=== PATIENT | female | born 1980 | race Hispanic/Latino ===

== ENCOUNTER 2017-04-30 20:05 | Observation (INO) | payer MEDICARE, MEDICAID ==
[2017-04-30 20:05] VITALS: BMI 26.4
--- NOTE | 2017-04-30 21:52 | ED PDOC ---
HPI: CCC, URI, Sore Throat Time Seen by Provider: 04/30/17 21:30 Chief Complaint (Nursing): Shortness Of Breath Chief Complaint (Provider): cough History Per: Patient History/Exam Limitations: no limitations Onset/Duration Of Symptoms: Days (4) Current Symptoms Are (Timing): Still Present Location Of Pain: Throat Associated Symptoms: Fever, Chills, Sore Throat, Cough, Myalgias Additional History Per: Patient Additional Complaint(s): 36 y/o female history of multiple sclerosis (on IVIG infusions every 2 weeks) presents with cough x 4 days. Associated chest pain, shortness of breath, throat pain. Patient notes generalized weakness, with excessive weight gain and associated swelling x 3 weeks; states she is being followed by [employer] to be tested for possible [place]'s syndrome and thyroid disease. Patient states she gets bronchitis this time of year, was seen by her primary doctor and prescribed Zpak and advised to come to the ED for admission as he noticed her swelling around her neck to be getting worse. Denies neck pain, nausea/vomiting, palpitations, abdominal pain, recent travel ,sick contacts. Patient has been off PO prednisone use for about 2-3 weeks. Past Medical History Reviewed: Historical Data, Nursing Documentation, Vital Signs Vital Signs: Last Vital Signs Temp 98.5 F 05/02/17 13:00 Pulse 84 05/02/17 13:00 Resp 18 05/02/17 13:00 BP 94/60 L 05/02/17 13:00 Pulse Ox 99 05/02/17 13:00 - Medical History PMH: Bronchitis, Fibromyalgia, Multiple Sclerosis, Pneumonia Denies: Depression, Chronic Kidney Disease - Surgical History Surgical History: No Surg Hx - Family History Family History: States: Unknown Family Hx - Home Medications Home Medications: Ambulatory Orders Medication Instructions Recorded Pregabalin [Lyrica] 200 mg PO TID 10/18/15 Carbidopa/Levodopa [Rytary ER 36.25 mg PO TID 05/01/17 36.25 mg-145 mg Cap] HYDROmorphone [Dilaudid] 1 tab PO TID 05/01/17 tiZANidine [Zanaflex] 1 tab PO QID 05/01/17 Cefuroxime Axetil [Cefuroxime] 500 mg PO BID #14 tablet 05/02/17 - Allergies Allergies/Adverse Reactions: Allergies Allergy/AdvReac Type Severity Reaction Status Date / Time methylprednisolone sodium Allergy Severe ANAPHYLAXIS Verified 02/20/17 12:10 succinate [From Solu-Medrol] meloxicam [From Mobic] Allergy ANGIOEDEMA Verified 02/20/17 12:10 naproxen Allergy URTICARIA Verified 02/20/17 12:10 Review of Systems ROS Statement: Except As Marked, All Systems Reviewed And Found Negative Constitutional: Positive for: Fever, Chills Cardiovascular: Positive for: Chest Pain Respiratory: Positive for: Cough, Shortness of Breath Physical Exam - Reviewed Nursing Documentation Reviewed: Yes Vital Signs Reviewed: Yes - Physical Exam Appears: Positive for: Well, Non-toxic, No Acute Distress Head Exam: Positive for: ATRAUMATIC, NORMAL INSPECTION, NORMOCEPHALIC Skin: Positive for: Normal Color, Rash (erythema/swelling noted anterior and posterior neck (buffalo hump?)) Eye Exam: Positive for: Normal appearance ENT: Positive for: Normal ENT Inspection Cardiovascular/Chest: Positive for: Regular Rate, Rhythm, Other (left chest port -a-cath) Respiratory: Positive for: Normal Breath Sounds Gastrointestinal/Abdominal: Positive for: Normal Exam Back: Positive for: Normal Inspection Extremity: Positive for: Normal ROM Neurologic/Psych: Positive for: Alert, Oriented - Laboratory Results Result Diagrams: 05/01/17 10:30 05/02/17 05:30 - ECG ECG: Positive for: Viewed By Me (reviewed by ED attending) ECG Rhythm: Positive for: Sinus Tachycardia O2 Sat by Pulse Oximetry: 98 - Progress ED Course And Treament: labs, urine, chest xray, IV fluids EXAM: XR Chest, 1 View CLINICAL HISTORY: 36 years old, female; Pain; Chest pain; Additional info: Cough, chest pain, SOB TECHNIQUE: Frontal view of the chest 9:58 PM on April 30, 2017. COMPARISON: No relevant prior studies available. FINDINGS: Lungs: There are mildly prominent interstitial markings bilaterally. Pleural space: Unremarkable. No pneumothorax. Heart: Unremarkable. No cardiomegaly. Mediastinum: Unremarkable. Tubes, lines and devices: A left subclavian central venous catheter is present, with its tip overlying the region of the superior vena cava. IMPRESSION: Mildly prominent interstitial markings bilaterally could be secondary to interstitial edema or pneumonia. No focal consolidation. Patient evaluated by ED attending Dr. Mukherjee; will admit for pneumonia with failed outpatient treatment and obtain CT neck to r/out fluid collection IV rocephin, IV zithromax ordered Case discussed with Dr. Pedersen, medical service on-call, for admission. EXAM: CT Neck Without Intravenous Contrast CLINICAL HISTORY: 36 years old, female; Pain; Other: Swelling TECHNIQUE: Axial computed tomography images of the neck without intravenous contrast. All CT scans at this facility use one or more dose reduction techniques, viz.: automated exposure control; ma/kV adjustment per patient size (including targeted exams where dose is matched to indication; i.e. head); or iterative reconstruction technique. Coronal and sagittal reformatted images were created and reviewed. COMPARISON: US - THYROID 10/18/2015 8:38:01 AM FINDINGS: Nasopharynx: Unremarkable. Oropharynx: Unremarkable. No significant tonsillar enlargement. Hypopharynx: Unremarkable. Larynx: Unremarkable. Normal epiglottis. Trachea: Unremarkable. Retropharyngeal space: Unremarkable. Submandibular/parotid glands: Unremarkable. Glands are normal in size. Thyroid: Unremarkable. No enlarged or calcified nodules. Bones/joints: No acute fracture. Soft tissues: Unremarkable. Vasculature: No acute findings. Lymph nodes: Mildly enlarged cervical lymph nodes bilaterally. The largest care support representative lymph node measures 1.5 cm. Lung apices: Unremarkable as visualized. IMPRESSION: Mildly enlarged cervical lymph nodes. No focal fluid collection or mass. Disposition - Clinical Impression Clinical Impression: Leukocytosis, Pneumonia - Patient ED Disposition Is Patient to be Admitted: Yes - Disposition Disposition Time: 00:00 Condition: FAIR
[2017-04-30 22:23] LABS: BASO # 0.2 K/uL (0.0-0.2); BASO % 1.1 % (0.0-2.0); EOS # 0.1 K/uL (0.0-0.7); EOS % 0.6 % (0.0-4.0); HEMATOCRIT 38.9 % (34.0-47.0); LYMPH # 2.3 K/uL (1.0-4.3); LYMPH % 13.3 % (20.0-40.0); MEAN CELL VOLUME 88.4 fl (81.0-99.0); MEAN CORPUSCULAR HEMOGLOBIN 29.1 pg (27.0-31.0); MEAN CORPUSCULAR HGB CONC 32.9 g/dL (33.0-37.0); MEAN PLATELET VOLUME 7.5 fl (7.2-11.7); MONO # 0.7 K/uL (0.0-0.8); NEUT # 14.1 K/uL (1.8-7.0); RED CELL DISTRIBUTION WIDTH 15.5 % (11.5-14.5); WHITE BLOOD COUNT 17.4 K/uL (4.8-10.8)
[2017-04-30 22:31] LABS: VENOUS BLOOD GAS BASE EXCESS -0.8 mmol/L (0.0-2.0); VENOUS BLOOD GAS PCO2 37 mmHg (40-60); VENOUS BLOOD PH 7.41 (7.32-7.43)
[2017-04-30 22:36] LABS: ALB/GLOB RATIO 1.2 (1.0-2.1); ALKALINE PHOSPHATASE 112 U/L (38-126); ALT/SGPT 17 U/L (9-52); AST/SGOT 40 U/L (14-36); BILIRUBIN,TOTAL 0.9 mg/dl (0.2-1.3); BLOOD UREA NITROGEN 8 mg/dl (7-17); CARBON DIOXIDE 22 mmol/L (22-30); CHLORIDE 105 mmol/L (98-107); GFR AFRICAN-AMERICAN > 60; GLUCOSE,RANDOM 108 mg/dL (65-105); POTASSIUM 4.1 MMOL/L (3.6-5.0); SODIUM 140 mmol/l (132-148); TOTAL PROTEIN 7.1 G/DL (6.3-8.2)
[2017-04-30] MEDS ORDERED: Sodium Chloride 0.9% 1,000 ML IV STA (23:01)
[2017-04-30 23:07] LABS: THYROID STIMULATING HORMONE 0.75 mIU/ML (0.46-4.68)
[2017-04-30 23:30] LABS: RBC URINE 1 /hpf (0-3); URINE BACTERIA RARE (<OCC); URINE BILIRUBIN NEGATIVE (NEGATIVE); URINE BLOOD NEGATIVE (NEGATIVE); URINE COLOR STRAW (YELLOW); URINE GLUCOSE (UA) NEG (Normal); URINE KETONE NEGATIVE (NEGATIVE); URINE LEUKOCYTE ESTERASE NEG Leu/uL (Negative); URINE PROTEIN NEGATIVE (NEGATIVE); URINE UROBILINOGEN 0.2-1.0 mg/dL (0.2-1.0); WBC URINE 1 /hpf (0-5)
[2017-05-01] MEDS ORDERED: Azithromycin 500 MG in Sodium Chloride 0.9% 250 ML IVPB STA (00:23)
[2017-05-01] MEDS ORDERED: cefTRIAXone (Rocephin) 1 gm Inj ONE (00:33)
[2017-05-01] MEDS ORDERED: Azithromycin 500 MG IV IVPB ONE (02:07)
[2017-05-01] MEDS ORDERED: Albuterol-Ipratrop 3 mg / 0.5 (3 ml) UD IH STA (03:34)
[2017-05-01] MEDS ORDERED: Albuterol-Ipratrop 3 mg / 0.5 (3 ml) UD ONE (05:32)
--- NOTE | 2017-05-01 07:56 | CT ---
PROCEDURE: CT NECK WITHOUT CONTRAST HISTORY: swelling COMPARISON: None. TECHNIQUE: CT of the neck without intravenous contrast. Coronal and sagittal reformats generated. Radiation dose: DLP 577.36 mGy-cm This CT exam was performed using one or more of the following dose reduction techniques: Automated exposure control, adjustment of the mA and/or kV according to patient size, and/or use of iterative reconstruction technique. FINDINGS: NASOPHARYNX: Unremarkable. SUPRAHYOID NECK: Unremarkable oropharynx, oral cavity, parapharyngeal space and retropharyngeal space. INFRAHYOID NECK: Unremarkable larynx, hypopharynx, and supraglottic space. Vocal cords intact. MASS: None. GLANDS: Parotid and submandibular glands unremarkable. Normal size thyroid gland, somewhat heterogeneous in density but nonfocal. LYMPH NODES: [place] supra and infrahyoid lymph nodes are identified without significant enlargement. CERVICAL SPINE: No fracture or focal lesion. OTHER FINDINGS: A left subclavian central venous port is identified placed in the superior vena cava with the tip off this examination. IMPRESSION: Left central venous chest port as discussed above. Tip off examination. No suspicious lymphadenopathy above or below the hyoid bone, discrete mass or evidence of soft tissue edema. Contrast CT is available further characterization if clinical concern remains for further neck pathology. Concordant report from [facility] 05/01/2017.
--- NOTE | 2017-05-01 08:01 | CP.PCM.HP ---
History of Present Illness - History of Present Illness History of Present Illness: A 36 year old female with a known history of MS was sent by her PMD, Dr Jerel Espinosa for voice hoarseness and closing sense of her throat. She could not make her voice and could not swallow for a few days. Her PMD prescribed antibiotics for throat infection, but it got worse. She was diagnosed with MS about five years ago. She has been taking IV Ig infusion 1 gram every two weeks. She has been seeing an airfreight operations agent for evaluation for Mitch disease and goiter. She developed an anaphylactic reaction to solumedrol before. Present on Admission - Present on Admission Any Indicators Present on Admission: No History of DVT/PE: No History of Uncontrolled Diabetes: No Urinary Catheter: No Decubitus Ulcer Present: No Review of Systems - Constitutional Constitutional: absent: Anorexia, Chills - EENT Eyes: absent: Blurred Vision Ears: absent: Decreased Hearing Nose/Mouth/Throat: Dysphagia, Hoarsness - Cardiovascular Cardiovascular: absent: Chest Pain - Gastrointestinal Gastrointestinal: Bloating. absent: Abdominal Pain - Genitourinary Genitourinary: absent: Dysuria - Reproductive: Female Reproductive:Female: Heavy Menses (IUD) Past Patient History - Infectious Disease Hx of Infectious Diseases: None - Tetanus Immunizations Tetanus Immunization: Unknown - Past Social History Smoking Status: Heavy Smoker > 10 Cigarettes Daily - CARDIAC Hx Cardiac Disorders: No - PULMONARY Hx Bronchitis: Yes Hx Pneumonia: Yes - NEUROLOGICAL Hx Multiple Sclerosis: Yes - HEENT Other/Comment: Glasses - RENAL Hx Chronic Kidney Disease: No - ENDOCRINE/METABOLIC Hx Endocrine Disorders: No - HEMATOLOGICAL/ONCOLOGICAL Hx Blood Transfusions: No Hx Blood Transfusion Reaction: No - INTEGUMENTARY Hx Dermatological Problems: No - MUSCULOSKELETAL/RHEUMATOLOGICAL Hx Falls: No - GASTROINTESTINAL Hx Gastrointestinal Disorders: No - GENITOURINARY/GYNECOLOGICAL Hx Genitourinary Disorders: Yes Other/Comment: endometriosis, repair of uterus after delivery - PSYCHIATRIC Hx Depression: No - SURGICAL HISTORY Other/Comment: left eye surgery for clogged tear duct. left chest port 10/05/16 - ANESTHESIA Hx Anesthesia: Yes Hx Anesthesia Reactions: No Hx Malignant Hyperthermia: No Meds Allergies/Adverse Reactions: Allergies Allergy/AdvReac Type Severity Reaction Status Date / Time methylprednisolone sodium Allergy Severe ANAPHYLAXIS Verified 02/20/17 12:10 succinate [From Solu-Medrol] meloxicam [From Mobic] Allergy ANGIOEDEMA Verified 02/20/17 12:10 naproxen Allergy URTICARIA Verified 02/20/17 12:10 Physical Exam - Constitutional Appears: No Acute Distress - ENT Exam ENT Exam: Normal Oropharynx (mild erythema) - Respiratory Exam Respiratory Exam: Clear to Auscultation Bilateral, NORMAL BREATHING PATTERN - Cardiovascular Exam Cardiovascular Exam: REGULAR RHYTHM. absent: Systolic Murmur - GI/Abdominal Exam GI & Abdominal Exam: Soft. absent: Tenderness (umbilical hernia) Results - Vital Signs Recent Vital Signs: Last Vital Signs Temp 98.0 F 05/01/17 05:41 Pulse 89 05/01/17 05:41 Resp 16 05/01/17 05:41 BP 108/60 05/01/17 05:41 Pulse Ox 100 05/01/17 05:41 - Labs Result Diagrams: 04/30/17 21:50 04/30/17 22:38 Labs: Laboratory Results - last 24 hr 04/30/17 04/30/17 04/30/17 21:50 22:10 22:10 WBC 17.4 H RBC 4.40 Hgb 12.8 Hct 38.9 MCV 88.4 MCH 29.1 MCHC 32.9 L RDW 15.5 H Plt Count 200 MPV 7.5 Neut % (Auto) 81.0 H Lymph % (Auto) 13.3 L [place] % (Auto) 4.0 Eos % (Auto) 0.6 Baso % (Auto) 1.1 Neut # 14.1 H Lymph # 2.3 [place] # 0.7 Eos # 0.1 Baso # 0.2 pO2 VBG pH VBG pCO2 VBG HCO3 VBG Total CO2 VBG O2 Sat (Calc) VBG Base Excess VBG Potassium Sodium Chloride Glucose Lactate FiO2 Potassium Carbon Dioxide Anion Gap BUN Creatinine Est GFR ( Amer) Est GFR (Non-Af Amer) Random Glucose Calcium Total Bilirubin AST ALT Alkaline Phosphatase Troponin I Total Protein Albumin Globulin Albumin/Globulin Ratio Free T4 TSH 3rd Generation Venous Blood Potassium Urine Color Urine Clarity Urine pH Ur Specific [place] Urine Protein Urine Glucose (UA) Urine Ketones Urine Blood Urine Nitrate Urine Bilirubin Urine Urobilinogen Ur Leukocyte Esterase Urine RBC (Auto) Urine Microscopic WBC Ur Squamous Epith Cells Urine Bacteria Influenza Typ A,B (EIA) Negative for flu a/b Grp A Beta Strep Ag Negative 04/30/17 04/30/17 04/30/17 22:25 22:38 23:08 WBC RBC Hgb Hct MCV MCH MCHC RDW Plt Count MPV Neut % (Auto) Lymph % (Auto) [place] % (Auto) Eos % (Auto) Baso % (Auto) Neut # Lymph # [place] # Eos # Baso # pO2 60 H VBG pH 7.41 VBG pCO2 37 L VBG HCO3 24.1 VBG Total CO2 24.6 VBG O2 Sat (Calc) 97.2 H VBG Base Excess -0.8 L VBG Potassium 4.0 Sodium 134.0 140 Chloride 102.0 105 Glucose 113 H Lactate 0.6 L FiO2 21.0 Potassium 4.1 Carbon Dioxide 22 Anion Gap 17 BUN 8 Creatinine 0.7 Est GFR ( Amer) > 60 Est GFR (Non-Af Amer) > 60 Random Glucose 108 H Calcium 9.0 Total Bilirubin 0.9 AST 40 H D ALT 17 Alkaline Phosphatase 112 Troponin I < 0.0120 Total Protein 7.1 Albumin 4.0 Globulin 3.2 Albumin/Globulin Ratio 1.2 Free T4 1.27 TSH 3rd Generation 0.75 Venous Blood Potassium 4.0 Urine Color Urine Clarity Urine pH Ur Specific [place] Urine Protein Urine Glucose (UA) Urine Ketones Urine Blood Urine Nitrate Urine Bilirubin Urine Urobilinogen Ur Leukocyte Esterase Urine RBC (Auto) Urine Microscopic WBC Ur Squamous Epith Cells Urine Bacteria Influenza Typ A,B (EIA) Grp A Beta Strep Ag 04/30/17 23:20 WBC RBC Hgb Hct MCV MCH MCHC RDW Plt Count MPV Neut % (Auto) Lymph % (Auto) [place] % (Auto) Eos % (Auto) Baso % (Auto) Neut # Lymph # [place] # Eos # Baso # pO2 VBG pH VBG pCO2 VBG HCO3 VBG Total CO2 VBG O2 Sat (Calc) VBG Base Excess VBG Potassium Sodium Chloride Glucose Lactate FiO2 Potassium Carbon Dioxide Anion Gap BUN Creatinine Est GFR ( Amer) Est GFR (Non-Af Amer) Random Glucose Calcium Total Bilirubin AST ALT Alkaline Phosphatase Troponin I Total Protein Albumin Globulin Albumin/Globulin Ratio Free T4 TSH 3rd Generation Venous Blood Potassium Urine Color Straw Urine Clarity Clear Urine pH 7.0 Ur Specific [place] 1.008 Urine Protein Negative Urine Glucose (UA) Neg Urine Ketones Negative Urine Blood Negative Urine Nitrate Negative Urine Bilirubin Negative Urine Urobilinogen 0.2-1.0 Ur Leukocyte Esterase Neg Urine RBC (Auto) 1 Urine Microscopic WBC 1 Ur Squamous Epith Cells 1 Urine Bacteria Rare Influenza Typ A,B (EIA) Grp A Beta Strep Ag Assessment & Plan - Assessment and Plan (Free Text) Assessment: A 36 year old female with MS came for voice hoarseness, leukocytosis pharyngitis Plan: iv antibiotics continue iv immunoglobulin - Date & Time Date: 05/01/17 Time: 08:04 Decision To Admit - Pt Status Changed To: Hospital Disposition Of: Inpatient - Admit Certification Admit to Inpatient:: After my assessment, the patient will require hospitalization for at least two midnights. This is because of the severity of symptoms shown, intensity of services needed, and/or the medical risk in this patient being treated as an outpatient. - . Bed Request Type: Telemetry Admitting Physician: Alicia Pedersen
[2017-05-01] MEDS ORDERED: Albuterol-Ipratrop 3 mg / 0.5 (3 ml) UD INH PRN (09:38)
--- NOTE | 2017-05-01 10:00 | RAD ---
HISTORY: cough, chest pain, sob COMPARISON: No prior. FINDINGS: LUNGS: No active pulmonary disease. PLEURA: No significant pleural effusion identified, no pneumothorax apparent. CARDIOVASCULAR: Normal. OSSEOUS STRUCTURES: No significant abnormalities. VISUALIZED UPPER ABDOMEN: Normal. OTHER FINDINGS: None. IMPRESSION: No acute cardiopulmonary disease appreciated.
[2017-05-01 11:01] LABS: ALB/GLOB RATIO 1.2 (1.0-2.1); ALKALINE PHOSPHATASE 97 U/L (38-126); ALT/SGPT 38 U/L (9-52); AST/SGOT 36 U/L (14-36); BILIRUBIN,TOTAL 0.9 mg/dl (0.2-1.3); BLOOD UREA NITROGEN 5 mg/dl (7-17); CALCIUM 8.9 mg/dL (8.4-10.2); CARBON DIOXIDE 23 mmol/L (22-30); CHLORIDE 109 mmol/L (98-107); GFR AFRICAN-AMERICAN > 60; GLUCOSE,RANDOM 92 mg/dL (65-105); HEMATOCRIT 36.9 % (34.0-47.0); MEAN CELL VOLUME 88.8 fl (81.0-99.0); MEAN CORPUSCULAR HGB CONC 33.8 g/dL (33.0-37.0); POTASSIUM 4.3 MMOL/L (3.6-5.0); RED CELL DISTRIBUTION WIDTH 15.6 % (11.5-14.5); SODIUM 143 mmol/l (132-148); TOTAL PROTEIN 6.6 G/DL (6.3-8.2); WHITE BLOOD COUNT 7.1 K/uL (4.8-10.8)
--- NOTE | 2017-05-01 11:25 | CP.PCM.PCO ---
Assessment & Plan - Assessment and Plan (Free Text) Assessment: 36 year old F with pmhx MS, failed outpatient zpack, adm with cp, sob, weakness pt. requesting scheduled dose of IVIG for MS Discussed with pt. neurologist who recommended holding IVIG until patient follows up with patient upon d/c cont. IV Abx cbc, bmp in am
[2017-05-01] MEDS: Azithromycin 500 MG in Sodium Chloride 0.9% 250 ML IVPB SCH (11:37)
[2017-05-01] MEDS ORDERED: LEVODOPA PO SCH (13:00)
[2017-05-01] MEDS ORDERED: CARBIDOPA PO SCH (13:00)
[2017-05-01] MEDS ORDERED: PREGABALIN 200 MG PO SCH (13:00)
[2017-05-02 06:33] LABS: ALB/GLOB RATIO 1.2 (1.0-2.1); ALKALINE PHOSPHATASE 104 U/L (38-126); ALT/SGPT 17 U/L (9-52); AST/SGOT 33 U/L (14-36); BILIRUBIN,TOTAL 0.6 mg/dl (0.2-1.3); BLOOD UREA NITROGEN 10 mg/dl (7-17); CALCIUM 9.2 mg/dL (8.4-10.2); CARBON DIOXIDE 22 mmol/L (22-30); CHLORIDE 108 mmol/L (98-107); CHOLESTEROL 230 mg/dL (0-199); GFR AFRICAN-AMERICAN > 60; GLUCOSE,RANDOM 95 mg/dL (65-105); POTASSIUM 4.3 MMOL/L (3.6-5.0); SODIUM 143 mmol/l (132-148); TOTAL PROTEIN 7.3 G/DL (6.3-8.2)
[2017-05-02 06:58] LABS: THYROID STIMULATING HORMONE 0.74 mIU/ML (0.46-4.68)
--- NOTE | 2017-05-02 07:52 | CP.PCM.PN ---
Subjective - Date & Time of Evaluation Date of Evaluation: 05/02/17 Time of Evaluation: 07:50 - Subjective Subjective: still voice hoarseness less cough Objective - Vital Signs/Intake and Output Vital Signs (last 24 hours): Temp Pulse Resp BP Pulse Ox 98.5 F 74 20 110/74 98 05/02/17 04:48 05/02/17 04:48 05/02/17 04:48 05/02/17 04:48 05/02/17 04:48 Intake and Output: 05/02/17 05/02/17 06:59 18:59 Intake Total 710 Balance 710 - Medications Medications: Current Medications Albuterol/Ipratropium (Duoneb 3 Mg/0.5 Mg (3 Ml) Ud) 3 ml INH RQ4 PRN PRN Reason: Shortness of Breath Home Med (Carbidopa/Levodopa [Rytary Er 23.75 Mg-95 Mg Cap]) 2 each PO TID [facility] Hydromorphone HCl (Dilaudid) 4 mg PO Q6 PRN PRN Reason: Pain, moderate (4-7) Ceftriaxone Sodium 1 gm/ (Sodium Chloride) 100 mls @ 100 mls/hr IVPB DAILY [facility] Last Admin: 05/01/17 11:36 Dose: 100 mls/hr Azithromycin 500 mg/ Sodium (Chloride) 250 mls @ 250 mls/hr IVPB DAILY [facility] Last Admin: 05/01/17 11:37 Dose: 250 mls/hr Nicotine (Nicoderm Cq) 1 patch TD DAILY [facility] Last Admin: 05/01/17 02:56 Dose: 1 patch Pregabalin (Lyrica) 200 mg PO TID [facility] Last Admin: 05/01/17 16:48 Dose: 200 mg Tizanidine HCl (Zanaflex) 4 mg PO QID [facility] Last Admin: 05/01/17 22:00 Dose: Not Given - Labs Labs: 05/01/17 10:30 05/02/17 05:30 - Constitutional Appears: No Acute Distress - Neck Exam Neck Exam: Full ROM, Thyromegaly. absent: Meningismus - Respiratory Exam Respiratory Exam: Clear to Ausculation Bilateral, NORMAL BREATHING PATTERN - Cardiovascular Exam Cardiovascular Exam: REGULAR RHYTHM - GI/Abdominal Exam GI & Abdominal Exam: Normal Bowel Sounds Assessment and Plan - Assessment and Plan (Free Text) Assessment: history of MSMitch came for voice hoarseness, stable now yesterday she skipped every two weeks IVIG she has a portacath. leukocytosis went down Plan: continue iv antibiotics can be discharged and out patient follow up with her PMD and Dr. Yuen, a neurologist.
[2017-05-02 08:26] VITALS: RESP 18
[2017-05-02] MEDS: Azithromycin 500 MG in Sodium Chloride 0.9% 250 ML IVPB SCH ×2 (08:52→11:18)
--- NOTE | 2017-05-02 10:18 | RAD ---
HISTORY: f/u COMPARISON: 04/30/2017 TECHNIQUE: Chest PA and lateral FINDINGS: LUNGS: No active pulmonary disease. PLEURA: No significant pleural effusion identified. No pneumothorax apparent. CARDIOVASCULAR: Left subclavian central venous infusion port noted. Normal heart size. No congestive change. OSSEOUS STRUCTURES: No significant abnormalities. VISUALIZED UPPER ABDOMEN: Normal. OTHER FINDINGS: None. IMPRESSION: No active disease.
[2017-05-02 12:18] VITALS: BP 94/60; PULSE 84; TEMP 98.5
[2017-05-02 17:07] LABS: CORTISOL AM 9.3 ug/dL (4.46-22.7)
[2017-05-02 17:10] LABS: TESTOSTERONE 23.1 ng/mL
[2017-05-03 02:49] VITALS: O2SAT 98
--- NOTE | 2017-05-03 21:16 | CP.PCM.DIS ---
Provider - Provider Date of Admission: 05/01/17 01:03 Attending physician: Alicia Pedersen MD Primary care physician: A 36 year old female was sent by her PMD for voice distubance and choked feeling. She is allergic to solumedrol. She was admitted for possible walk in pneumonia. Time Spent in preparation of Discharge (in minutes): 30 Hospital Course - Lab Results Lab Results: Micro Results 04/30/17 22:00 Blood-Venous Blood Culture - Preliminary NO GROWTH AFTER 48 HOURS 04/30/17 19:45 Blood-Venous Blood Culture - Preliminary NO GROWTH AFTER 48 HOURS 04/30/17 08:59 Urine,Clean Catch Urine Culture - Final No Growth (<1,000 CFU/ML) 04/30/17 22:10 Throat Group A Strep Throat Culture - Final NO BETA STREP GROUP A ISOLATED. Most Recent Lab Values WBC 7.1 K/uL (4.8-10.8) D 05/01/17 10:30 RBC 4.16 Mil/uL (3.80-5.20) 05/01/17 10:30 Hgb 12.5 g/dL (12.0-16.0) 05/01/17 10:30 Hct 36.9 % (34.0-47.0) 05/01/17 10:30 MCV 88.8 fl (81.0-99.0) 05/01/17 10:30 MCH 30.0 pg (27.0-31.0) 05/01/17 10:30 MCHC 33.8 g/dL (33.0-37.0) 05/01/17 10:30 RDW 15.6 % (11.5-14.5) H 05/01/17 10:30 Plt Count 187 K/uL (130-400) 05/01/17 10:30 MPV 7.5 fl (7.2-11.7) 04/30/17 21:50 Neut % (Auto) 81.0 % (50.0-75.0) H 04/30/17 21:50 Lymph % (Auto) 13.3 % (20.0-40.0) L 04/30/17 21:50 [place] % (Auto) 4.0 % (0.0-10.0) 04/30/17 21:50 Eos % (Auto) 0.6 % (0.0-4.0) 04/30/17 21:50 Baso % (Auto) 1.1 % (0.0-2.0) 04/30/17 21:50 Neut # 14.1 K/uL (1.8-7.0) H 04/30/17 21:50 Lymph # 2.3 K/uL (1.0-4.3) 04/30/17 21:50 [place] # 0.7 K/uL (0.0-0.8) 04/30/17 21:50 Eos # 0.1 K/uL (0.0-0.7) 04/30/17 21:50 Baso # 0.2 K/uL (0.0-0.2) 04/30/17 21:50 pO2 60 mm/Hg (30-55) H 04/30/17 22:25 VBG pH 7.41 (7.32-7.43) 04/30/17 22:25 VBG pCO2 37 mmHg (40-60) L 04/30/17 22:25 VBG HCO3 24.1 mmol/L 04/30/17 22:25 VBG Total CO2 24.6 mmol/L (22-28) 04/30/17 22:25 VBG O2 Sat (Calc) 97.2 % (40-65) H 04/30/17 22:25 VBG Base Excess -0.8 mmol/L (0.0-2.0) L 04/30/17 22:25 VBG Potassium 4.0 mmol/L (3.6-5.2) 04/30/17 22:25 Sodium 134.0 mmol/L (132-148) 04/30/17 22:25 Chloride 102.0 mmol/L (98-107) 04/30/17 22:25 Glucose 113 mg/dL (65-105) H 04/30/17 22:25 Lactate 0.6 mmol/L (0.7-2.1) L 04/30/17 22:25 FiO2 21.0 % 04/30/17 22:25 Sodium 143 mmol/l (132-148) 05/02/17 05:30 Potassium 4.3 MMOL/L (3.6-5.0) 05/02/17 05:30 Chloride 108 mmol/L (98-107) H 05/02/17 05:30 Carbon Dioxide 22 mmol/L (22-30) 05/02/17 05:30 Anion Gap 17 (10-20) 05/02/17 05:30 BUN 10 mg/dl (7-17) 05/02/17 05:30 Creatinine 0.7 mg/dL (0.7-1.2) 05/02/17 05:30 Est GFR ( Amer) > 60 05/02/17 05:30 Est GFR (Non-Af Amer) > 60 05/02/17 05:30 Random Glucose 95 mg/dL (65-105) 05/02/17 05:30 Insulin Level 8.0 uIU/mL (2.0-19.6) 05/02/17 05:30 Calcium 9.2 mg/dL (8.4-10.2) 05/02/17 05:30 Total Bilirubin 0.6 mg/dl (0.2-1.3) 05/02/17 05:30 AST 33 U/L (14-36) 05/02/17 05:30 ALT 17 U/L (9-52) 05/02/17 05:30 Alkaline Phosphatase 104 U/L (38-126) 05/02/17 05:30 Troponin I < 0.0120 ng/mL (0.00-0.120) 04/30/17 22:38 Total Protein 7.3 G/DL (6.3-8.2) 05/02/17 05:30 Albumin 4.0 g/dL (3.5-5.0) 05/02/17 05:30 Globulin 3.3 gm/dL (2.2-3.9) 05/02/17 05:30 Albumin/Globulin Ratio 1.2 (1.0-2.1) 05/02/17 05:30 Triglycerides 117 mg/DL (0-149) 05/02/17 05:30 Cholesterol 230 mg/dL (0-199) H 05/02/17 05:30 LDL Cholesterol Direct 165 mg/dL (0-129) H 05/02/17 05:30 HDL Cholesterol 39 MG/DL (30-70) 05/02/17 05:30 Free T4 1.25 ng/dL (0.78-2.19) 05/02/17 05:30 TSH 3rd Generation 0.74 mIU/ML (0.46-4.68) 05/02/17 05:30 Testosterone Level 23.1 ng/mL 05/02/17 05:30 DHEA Sulfate 60 mcg/dL (23-266) 05/02/17 05:30 Cortisol AM Sample 9.3 ug/dL (4.46-22.7) 05/02/17 05:30 Plasma Cortisol PM 3.29 ug/dL (1.7-14.1) 05/01/17 00:33 Venous Blood Potassium 4.0 mmol/L (3.6-5.2) 04/30/17 22:25 Urine Color Straw (YELLOW) 04/30/17 23:20 Urine Clarity Clear (Clear) 04/30/17 23:20 Urine pH 7.0 (5.0-8.0) 04/30/17 23:20 Ur Specific [place] 1.008 (1.003-1.030) 04/30/17 23:20 Urine Protein Negative mg/dL (NEGATIVE) 04/30/17 23:20 Urine Glucose (UA) Neg mg/dL (Normal) 04/30/17 23:20 Urine Ketones Negative mg/dL (NEGATIVE) 04/30/17 23:20 Urine Blood Negative (NEGATIVE) 04/30/17 23:20 Urine Nitrate Negative (NEGATIVE) 04/30/17 23:20 Urine Bilirubin Negative (NEGATIVE) 04/30/17 23:20 Urine Urobilinogen 0.2-1.0 mg/dL (0.2-1.0) 04/30/17 23:20 Ur Leukocyte Esterase Neg [place]/uL (Negative) 04/30/17 23:20 Urine RBC (Auto) 1 /hpf (0-3) 04/30/17 23:20 Urine Microscopic WBC 1 /hpf (0-5) 04/30/17 23:20 Ur Squamous Epith Cells 1 /hpf (0-5) 04/30/17 23:20 Urine Bacteria Rare (<OCC) 04/30/17 23:20 Thyroperoxidase Ab 7 IU/mL (<9) 05/02/17 05:30 Influenza Typ A,B (EIA) Negative for flu a/b (NEGATIVE) 04/30/17 22:10 Grp A Beta Strep Ag Negative (NEGATIVE) 04/30/17 22:10 - Hospital Course Hospital Course: leukocytosis resolved neuro consult wanted to skip IVIG and an out patient follow up patient had iv antibiotics Chest X-ray report was normal. - Date & Time of H&P Date of H&P: 05/03/17 Time of H&P: 21:16 Discharge Exam - Head Exam Head Exam: ATRAUMATIC, NORMAL INSPECTION, NORMOCEPHALIC Discharge Plan - Discharge Medications Prescriptions: Cefuroxime Axetil [Cefuroxime] 500 mg PO BID #14 tablet - Follow Up Plan Condition: FAIR Disposition: HOME/ ROUTINE Instructions: Community Acquired Pneumonia (DC) Additional Instructions: pt. feels better today, denies sob, cp, fever, chills Chest xray repeated, results negative wbc 7.1, afebrile Rx for meds E rx to outpatient pharmacy patient cleared for discharge to [facility] today by pt. will f/u with outpatient f/u with pmd in 1 week pt. also f/u with pattern scratcher and has f/u appointment in [address] Jerel Ruffin in [place]. Referrals: Khoi Yuen MD [Staff Provider] -
== END 2017-05-02 14:16 | disposition home or self-care (01) ==
LOC: H.ER 20:05 → H.ERHOLD 05-01 01:03 → INTOOBSV 05-01 01:03 → H.TEL 05-01 09:12
PROVIDERS: ADMIT Internal Medicine; ATTEND Internal Medicine
DX: G35 Multiple sclerosis (principal); Z87.01 Personal history of pneumonia (recurrent); M79.7 Fibromyalgia; F17.200 Nicotine dependence, unspecified, uncomplicated; J40 Bronchitis, not specified as acute or chronic; N80.9 Endometriosis, unspecified; R53.1 Weakness; R63.5 Abnormal weight gain; J02.9 Acute pharyngitis, unspecified; R49.0 Dysphonia; R59.0 Localized enlarged lymph nodes
CPT/HCPCS: 36415; 70490; 71010; 71020; 80053; 80061; 81003; 82533; 82627; 82803; 83525; 84403; 84439; 84443; 84484; 85025; 85027; 86376; 87040; 87070; 87086; 87430; 87804; 94150; 94640; 96365; 99285; G0378; J0456; J0696; J7040; J7050